=== PATIENT | female | born 1935 | race Two or more races ===

== ENCOUNTER 2022-01-11 13:05 | Emergency (ER) | payer OTHER ==
[2022-01-11 13:18] VITALS: RESP 18; TEMP 97.8; BMI 23.1
[2022-01-11 19:17] VITALS: BP 119/105; PULSE 64
== END 2022-01-11 21:18 | disposition short-term general hospital (02) ==
LOC: JER 13:05
DX: S09.90XA Unspecified injury of head, initial encounter (principal)
CPT/HCPCS: 70450-TC; 70486-TC; 99284-25; C9803-CS; U0003; U0005